=== PATIENT | male | born 1955 | race Caucasian/White ===

== ENCOUNTER → 2016-11-02 | Day surgery (SDC) | payer BC ==
[~2016-11-02] MED LIST: ATROPINE SULFATE 1% OPHT SOLN 2 ML BTL ONE; DEXAMETHASONE SOD PHOS 4 MG/ML VIAL ONE; EPINEPHrine HCL (1:1000) 1 MG/ML VIAL ONE; FLURBIPROFEN 0.03% OPHT SOLN 2.5 ML BTL ONE; HYALURONIDASE/LIDOCAINE/BUPIVACAINE 11 ML SYR TL ONE; LACTATED RINGER'S 1000 ML INJ 1,000 ML ONE; NEOMYCIN/POLYMYXIN/DEXAMETHASONE OPTH OINT 3.5 GM TUBE ONE; PHENYLEPHRINE HCL 2.5% OPTH SOLN 2 ML BTL ONE; PROPOFOL 100 MG/10 ML INJ IV ONE; SODIUM CHLORIDE 0.9% INJ 10 ML ONE; TROPICAMIDE 1% OPHT SOLN 15 ML BTL ONE; ceFAZolin INJ 1,000 MG VIAL ONE
--- NOTE | 2016-11-10 14:39 | TN ---
cc: SHERMAN IVERSON MD DATE OF SURGERY 11/02/2016 PREOPERATIVE DIAGNOSIS Retinal detachment left eye POSTOPERATIVE DIAGNOSIS Retinal detachment left eye PROCEDURE Pars plana vitrectomy, endolaser gas-fluid exchange left eye. ANESTHESIA MAC. SURGEON MD Vanna COMPLICATIONS None PROCEDURE After informed consent was obtained, the patient was given retrobulbar anesthesia. He was then brought to the operating room and prepared and draped in the usual sterile fashion. A wire lid speculum was placed in the patient's left eye. 23-gauge vitrectomy cannulas were then placed in the lower temporal, superotemporal and supranasal quadrants 3 mm posterior to the corneoscleral limbus. An infusion cannula was placed lower temporally. Core vitrectomy was then performed. There was already a posterior vitreous detachment. A vitrectomy was carried out as far as possible to the vitreous base taking care to remove vitreous from around the retinal break. A complete air-fluid exchange was then performed through a posterior retinotomy. The retina flattened nicely. Endolaser was used to treat the retinal breaks as well as the vitreous base for 360 degrees and the retinotomy. The air was then exchanged for a 16% C3F8. The three vitrectomy cannulas were then removed. Subconjunctival injections of dexamethasone and Ancef were placed. An Atropine drop, Maxitrol and a patch and shield were then applied. The patient tolerated the procedure well. There were no complications. He will position appropriately over the next week. [facility]. Sherman Iverson MD TAB/DJL /6:46 PM /2:27 PM
== END | disposition home or self-care (01) ==
LOC: ESDC 13:56
PROVIDERS: ATTEND Ophthalmology Retina Specialist
DX: H33.002 Unspecified retinal detachment with retinal break, left eye (principal)
CPT/HCPCS: 00145; 67108; J0171; J0690; J1100; J7120

== ENCOUNTER → 2017-05-22 | Day surgery (SDC) | payer BC ==
[~2017-05-22] MED LIST changes: -ATROPINE SULFATE 1% OPHT SOLN 2 ML BTL ONE; +ATROPINE SULFATE 1% OPHT SOLN 5 ML BTL ONE; -FLURBIPROFEN 0.03% OPHT SOLN 2.5 ML BTL ONE; +PHENYLEPHRINE HCL 2.5 % OPTH SOLN 15 ML BTL ONE; -PHENYLEPHRINE HCL 2.5% OPTH SOLN 2 ML BTL ONE; +TETRACAINE 0.5% OPTH SOLN 15 ML BTL ONE
--- NOTE | 2017-06-06 07:55 | TN ---
cc: SHERMAN IVERSON MD DATE OF 1955 DATE OF SURGERY 05/22/2017 PREOPERATIVE DIAGNOSIS Retinal detachment left eye. POSTOPERATIVE DIAGNOSIS Retinal detachment left eye. PROCEDURE Pars plana vitrectomy, membrane peeling, endolaser, silicone oil removal and gas-fluid exchange, left eye. ANESTHESIA MAC. SURGEON MD Vanna COMPLICATIONS None. 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 He is here for silicone oil removal. PROCEDURE After the patient was given retrobulbar anesthesia, he was brought to the operating room and prepared and draped in the usual sterile fashion. A wire lid speculum was placed on the patient's left eye. 23-gauge vitrectomy cannulas were then placed in the lower temporal, superotemporal and superonasal quadrants 3-mm posterior to the corneoscleral limbus. Infusion cannulas were placed lower temporally. The silicone oil as then removed. Inferiorly there was an area of traction which lifted the retina. Intraocular forceps were used to remove the preretinal membrane and a small retinectomy was performed inferiorly. A complete air-fluid exchange was performed and this edge of the retina flattened nicely. Additional endolaser was placed in this area and the air was then exchanged for 16% C4F8. The three vitrectomy cannulas were then removed. Subconjunctival injections of dexamethasone and Ancef were placed. An Atropine drop, Maxitrol and a patch and shield were then applied. The patient tolerated the procedure well. There were no complications. [facility] He will remain on his side for the next week. Sherman Iverson MD TAB/SSB /6:48 PM /7:34 AM
== END | disposition home or self-care (01) ==
LOC: ESDC 12:52
PROVIDERS: ATTEND Ophthalmology Retina Specialist
DX: H33.012 Retinal detachment with single break, left eye (principal)
CPT/HCPCS: 00145; 67108; J0171; J0690; J1100; J7120

== ENCOUNTER → 2017-07-12 | Day surgery (SDC) | payer BC ==
[~2017-07-12] MED LIST changes: -HYALURONIDASE/LIDOCAINE/BUPIVACAINE 11 ML SYR TL ONE; +HYALURONIDASE/LIDOCAINE/BUPIVACAINE 5 ML SYR ONE; -PROPOFOL 100 MG/10 ML INJ IV ONE; +TRIAMCINOLONE ACETONIDE 40 MG/ML VIAL ONE
--- NOTE | 2017-07-16 11:09 | TN ---
cc: SHERMAN IVERSON MD DATE OF : [birth year] DATE OF SURGERY: 07/12/17 PREOPERATIVE DIAGNOSIS Retinal detachment left eye. POSTOPERATIVE DIAGNOSIS Retinal detachment left eye. PROCEDURE Pars plana vitrectomy, membrane peeling, endolaser, silicone oil placement left eye. ANESTHESIA MAC SURGEON Sherman Iverson MD COMPLICATIONS None PROCEDURE After informed consent was obtained, the patient was given retrobulbar anesthesia in the preoperative area. He was then brought to the operating room, prepared and draped in the usual sterile fashion. A wire lid speculum was placed in the patient's left eye. A 270 degree conjunctival peritomy was then performed using 0.12 forceps and Vivian scissors. Excellent hemostasis was obtained with bipolar cautery. Scleral carrera were then made 3 mm posterior to the corneoscleral limbus in the lower temporal, supratemporal and superonasal quadrants. A 6-0 Vicryl mattress suture was placed in the right lower temporal dottie. 23-gauge vitrectomy cannulas were then placed through these sites and an infusion cannula was placed lower temporally. There had been a previous vitrectomy performed. There was a near total retinal detachment with extensive peripheral vitreoretinopathy present on the surface of the retina. A pick and intraocular forceps were used to peel these membranes. A complete air-fluid exchange was performed and eventual endolaser was placed inferiorly. Silicone oil was then used to fill the vitreous cavity. The two superior vitrectomy cannulas were removed and each site was closed with an interrupted 6-0 Vicryl suture. The infusion cannula was then removed and the mattress suture was tied up permanently. The conjunctiva were repaired using two interrupted 7-0 Vicryl sutures. Subconjunctival injections of dexamethasone and Ancef were placed. Atropine drops, Maxitrol and a patch and shield were then applied. The patient tolerated the procedure well. There were no complications. [facility] Sherman Iverson MD TAB/KARL /9:44 AM /11:08 AM
== END | disposition home or self-care (01) ==
LOC: ESDC 12:07
PROVIDERS: ATTEND Ophthalmology Retina Specialist
DX: H33.42 Traction detachment of retina, left eye (principal)
CPT/HCPCS: 00145; 67108; C1814; J0171; J0690; J1100; J3301; J7120